=== PATIENT | female | born 2000 | race Caucasian/White ===

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

== ENCOUNTER 2020-08-06 16:19 | Emergency (ER) | payer OTHER ==
[~2020-08-06 16:19] MED LIST: ATARAX25 MG PO; MEDROL 4MG DOSEP4 MG PO; PEPCID AC20 MG PO; TRIAMCINOLONE 080 GM TOP
[2020-08-06 17:36] LABS: BASOPHIL 0.4 % (0-2); EOSINOPHIL 1.7 % (0-5); HCT 44.3 % (37.0-47.0); HGB 14.5 g/dl (12.5-16.0); LYMPHOCYTE 19.4 % (15-48); MCHC 32.7 g/dL (32.0-36.0); MCV 85.5 fL (78.0-100.0); MONOCYTE 5.6 % (0-12); MPV 10.7 fL (6.0-9.5); NEUTROPHIL 72.8 % (41-80); NRBC 0; PLT 213 K/uL (150-400); RBC 5.18 M/uL (4.20-5.40); RDW 13.7 % (11.5-14.0); WBC 8.9 K/uL (4.0-10.5)
[2020-08-06 17:55] LABS: BUN/CREAT RATIO (CALC) 16.9 RATIO; CREATININE 0.65 mg/dL (0.51-0.95); POTASSIUM 3.3 mmol/L (3.5-5.1)
== END 2020-08-06 20:00 | disposition home or self-care (01) ==
LOC: FER 16:19
PROVIDERS: Nurse Practitioner Family
DX: O20.0 Threatened abortion (principal); Z3A.00 Weeks of gestation of pregnancy not specified
CPT/HCPCS: 36415; 80048; 84702; 85025; 99284

== ENCOUNTER 2020-10-12 20:57 | Emergency (ER) | payer OTHER ==
[2020-10-12 22:09] LABS: BASOPHIL 0.7 % (0-2); EOSINOPHIL 5.2 % (0-5); HCT 38.5 % (37.0-47.0); LYMPHOCYTE 19.3 % (15-48); MCH 29.2 pg (25.0-31.0); MCHC 33.8 g/dL (32.0-36.0); MCV 86.5 fL (78.0-100.0); MPV 10.8 fL (6.0-9.5); NEUTROPHIL 63.5 % (41-80); NRBC 0; PLT 221 K/uL (150-400); RBC 4.45 M/uL (4.20-5.40); RDW 13.2 % (11.5-14.0); WBC 7.3 K/uL (4.0-10.5)
[2020-10-12 22:21] LABS: BUN/CREAT RATIO (CALC) 9.7 RATIO; CREATININE 0.62 mg/dL (0.51-0.95); POTASSIUM 3.1 mmol/L (3.5-5.1)
[2020-10-12 22:25] LABS: LACTIC ACID 1.3 mmol/L (0.4-1.9)
[2020-10-12 22:49] LABS: BILIRUBIN NEGATIVE (NEGATIVE); BLOOD NEGATIVE Ery/uL (NEGATIVE); CLARITY HAZY (CLEAR); COLOR YELLOW (YELLOW); GLUCOSE (U) NORMAL (NORMAL); LEUKOCYTES 1+ Leu/uL (NEGATIVE); NITRITE POSITIVE (NEGATIVE); PROTEIN NEGATIVE (NEGATIVE); SPECIFIC GRAVITY 1.025 (1.001-1.030); UROBILINOGEN 0.2 mg/dL (0.2-1.0)
[2020-10-12 22:55] LABS: BACTERIA 4+; URINARY RBC RARE
[2020-10-12] MEDS ORDERED: MUCINEX 600MG600 MG PO (23:51)
[2020-10-12] MEDS ORDERED: AMOX TR-K CLV1 EAC3 PO (23:51)
== END 2020-10-13 00:07 | disposition home or self-care (01) ==
LOC: FER 20:57
PROVIDERS: Emergency Medicine
DX: O23.41 Unspecified infection of urinary tract in pregnancy, first trimester (principal); O99.511 Diseases of the respiratory system complicating pregnancy, first trimester; J32.9 Chronic sinusitis, unspecified; Z3A.01 Less than 8 weeks gestation of pregnancy
CPT/HCPCS: 36415; 71046; 80048; 81001; 83605; 84145; 85025; 85379; J0696

== ENCOUNTER 2020-12-23 22:53 | Emergency (ER) | payer OTHER ==
[~2020-12-23 22:53] MED LIST changes: +AMOX TR-K CLV1 EAC3 PO; +MUCINEX 600MG600 MG PO
[2020-12-24 00:31] LABS: BILIRUBIN NEGATIVE (NEGATIVE); BLOOD NEGATIVE Ery/uL (NEGATIVE); CLARITY SLIGHTLY HAZY (CLEAR); COLOR YELLOW (YELLOW); GLUCOSE (U) NORMAL (NORMAL); LEUKOCYTES 3+ Leu/uL (NEGATIVE); NITRITE NEGATIVE (NEGATIVE); PROTEIN NEGATIVE (NEGATIVE); UROBILINOGEN 0.2 mg/dL (0.2-1.0); pH 6.5 (5.0-9.0)
[2020-12-24 00:32] LABS: BACTERIA TRACE
[2020-12-24 00:34] LABS: YEAST PRESENT
[2020-12-24] MEDS ORDERED: CEFDINIR300 MG PO (04:13)
== END 2020-12-24 04:30 | disposition home or self-care (01) ==
LOC: FER 22:53
PROVIDERS: Emergency Medicine
DX: O20.9 Hemorrhage in early pregnancy, unspecified (principal); O23.42 Unspecified infection of urinary tract in pregnancy, second trimester; O16.2 Unspecified maternal hypertension, second trimester; Z3A.15 15 weeks gestation of pregnancy
CPT/HCPCS: 36415; 81001; 84702; 86900; 86901; 99284

== ENCOUNTER 2022-03-20 16:27 | Emergency (ER) | payer OTHER ==
[~2022-03-20 16:27] MED LIST changes: +CEFDINIR300 MG PO
== END 2022-03-20 17:43 | disposition left against medical advice (07) ==
LOC: FER 16:27
DX: R10.9 Unspecified abdominal pain (principal); Z53.21 Procedure and treatment not carried out due to patient leaving prior to being seen by health care provider